=== PATIENT | male | born 1955 | race Caucasian/White ===

== ENCOUNTER → 2020-10-21 | Outpatient (CLI) | payer MEDICARE, OTHER ==
[2019-09-10 13:40] VITALS: BP 165/74
[~2020-10-21] MED LIST: HYDR-3165 PO
--- NOTE | 2020-10-21 16:25 | RAD ---
EXAMINATION: XR KNEE_AP BILAT STANDING, XR KNEE_RT 1-2 VIEWS CLINICAL HISTORY: Knee pain, evaluation of right total knee arthroplasty TECHNIQUE: XR KNEE_AP BILAT STANDING, XR KNEE_RT 1-2 VIEWS Number of Images/Views: 3 COMPARISON: None FINDINGS: Intact right total knee arthroplasty with patellar resurfacing. Prostheses in satisfactory alignment with no evidence of hardware complication. No acute fracture. No significant joint effusion. Vascular calcifications. Limited evaluation of the left knee demonstrates degenerative changes with chondrocalcinosis in the m edial lateral compartments. IMPRESSION: Right total knee arthroplasty without complication. Electronically signed by: Josemanuel Costello DO (10/21/2020 4:22 PM) [id number]
== END ==
LOC: EDBD → DXRAD 13:05 → MERGE 13:05
PROVIDERS: ATTEND Physician Assistant
DX: M17.12 Unilateral primary osteoarthritis, left knee (principal); M11.262 Other chondrocalcinosis, left knee; Z96.651 Presence of right artificial knee joint
CPT/HCPCS: 73560; 73565